=== PATIENT | female | born 1975 | race Caucasian/White ===

== ENCOUNTER 2022-04-21 11:11 | Outpatient (CLI) | payer MEDICARE, MEDICAID, SELFPAY ==
--- NOTE | 2022-04-21 11:15 | CRLHL7_ITS ---
For Patients: As a result of the Century Cures Act, medical imaging exams and procedure reports are released immediately into your electronic medical record. You may view this report before your referring provider. If you have questions, please contact your health care provider. Technique: Double-contrast upper GI performed after the uneventful administration of effervescent crystals and thick barium followed by thin barium. Fluoroscopy time 2 minutes 9 seconds. Indication: Comparison: None. Findings: Swallowing mechanism: Normal. Esophageal motility: Decreased motility noted. Gastroesophageal reflux: Reflux to the proximal esophagus. Hernia: None. Esophagus, stomach and duodenal bulb mucosa: Mucosal irregularity involving mid and distal esophagus. No stricture or mass. Impression: Reflux esophagitis with mild esophageal spasm and decreased motility. Spontaneous reflux to the proximal esophagus. Normal stomach and duodenal bulb. Dictated by Abhishek Vazquez MD @ 04/21/2022 12:24:22 PM (Electronically Signed)
== END 2022-04-21 11:12 | disposition home or self-care (01) ==
PROVIDERS: PCP Family Medicine; Visit Provider Internal Medicine Gastroenterology
DX: R11.2 Nausea with vomiting, unspecified (principal); K21.00 Gastro-esophageal reflux disease with esophagitis, without bleeding; R10.13 Epigastric pain
CPT/HCPCS: 74246